=== PATIENT | female | born 2000 | race Caucasian/White ===

== ENCOUNTER 2024-04-05 16:00 | Emergency (ER) | payer MEDICAID ==
[~2024-04-05] VITALS: Ht 167.6 cm; Wt 66.0 kg
[2024-04-05 16:08] VITALS: O2SAT 100
[2024-04-05 16:13] VITALS: TEMP 37.2; O2SAT 100
[2024-04-05 16:42] LABS: CLARITY URINE CLOUDY (CLEAR); COLOR URINE YELLOW (YELLOW); GLUCOSE URINE NEGATIVE (NEGATIVE); KETONES URINE NEGATIVE (NEGATIVE); LEUKOCYTE ESTERASE URINE 1+ (NEGATIVE); NITRITE URINE NEGATIVE (NEGATIVE); OCCULT BLOOD URINE NEGATIVE (NEGATIVE); PH URINE 5.5 (4.5-8.0); PROTEIN URINE NEGATIVE (NEGATIVE); SPECIFIC GRAVITY URINE 1.019 (1.005-1.030)
[2024-04-05 17:03] LABS: BACTERIA URINE NONE SEEN; RBC URINE NONE SEEN /hpf (0-2); SQUAMOUS EPITHELIAL CELL URINE FEW /lpf (RARE/1+)
[2024-04-05 17:30] LABS: BASOPHILS % 0.2 % (0.0-2.0); EOSINOPHILS % 0.5 % (0.0-5.0); HEMOGLOBIN. 13.4 g/dL (12.0-16.0); LYMPHOCYTES % 9.7 % (20.0-50.0); MEAN CORPUSCULAR HEMOGLOBIN 31.3 pg (28.0-32.0); MEAN CORPUSCULAR HGB CONC 34.3 g/dL (31.0-37.0); MEAN CORPUSCULAR VOLUME 91.2 fL (81.0-99.0); MEAN PLATELET VOLUME 8.7 fl (7.4-10.4); MONOCYTES % 8.3 % (2.0-8.0); NEUTROPHILS % 81.3 % (40.0-76.0); PLATELET 267 x1000/uL (130-400); RED BLOOD CELL COUNT 4.27 mill/uL (4.2-5.4); RED CELL DISTRIBUTION WIDTH 12.9 % (11.6-14.6); WHITE BLOOD COUNT 11.9 x1000/uL (4.5-11.0)
[2024-04-05 17:38] LABS: CALCIUM 8.9 mg/dL (8.7-10.4); CARBON DIOXIDE 25 mEq/L (21-32); CHLORIDE 106 mEq/L (98-107); SODIUM 141 mEq/L (136-145)
[2024-04-05 17:43] LABS: CREATININE 0.7 mg/dL (0.6-1.0); HCG SCREEN NEGATIVE
[2024-04-05 17:44] LABS: GLUCOSE 130 mg/dL (70-105); UREA NITROGEN BLOOD 10 mg/dL (9-23)
[2024-04-05 17:45] LABS: ALANINE AMINOTRANSFERASE 61 IU/L (10-49); ASPARTATE AMINOTRANSFERASE 180 IU/L (<34)
[2024-04-05 17:46] LABS: BILIRUBIN DIRECT 0.3 mg/dL (<=3.0); BILIRUBIN TOTAL 0.7 mg/dL (0.1-1.0)
[2024-04-05 17:47] LABS: PROTEIN TOTAL 6.8 g/dL (6.0-8.3)
[2024-04-05 18:53] VITALS: BP 107/38; PULSE 68; RESP 16
[2024-04-05] MEDS: KETOROLAC 15MG/ML VIAL IM ONE (18:53)
[2024-04-05] MEDS: ACETAMINOPHEN 325MG TABLET PO ONE (18:54)
[2024-04-05] MEDS: ONDANSETRON 4MG ODT PO ONE (18:54)
[2024-04-05] MEDS ORDERED: SULF1TAB48 MT (21:11)
== END 2024-04-05 21:35 | disposition home or self-care (01) ==
LOC: ER 16:00
DX: R10.11 Right upper quadrant pain (principal); K80.20 Calculus of gallbladder without cholecystitis without obstruction; N39.0 Urinary tract infection, site not specified; Z98.84 Bariatric surgery status
CPT/HCPCS: 99285; 74176; 76705; 80076; 80048; 81003; 81025; 84703; 85025; 86850; 86900; 86901; 36415; 96372; J1885; Q0162